=== PATIENT | female | born 1940 | race Caucasian/White ===

== ENCOUNTER → 2023-07-28 13:29 | Outpatient (REF) | payer OTHER, SELFPAY | LOC: HWRAD 13:29 | PROVIDERS: ATTENDING PHYSICIAN Internal Medicine Geriatric Medicine | DX: E78.2 Mixed hyperlipidemia (principal); I48.0 Paroxysmal atrial fibrillation; K21.9 Gastro-esophageal reflux disease without esophagitis; K22.70 Barrett's esophagus without dysplasia; D72.810 Lymphocytopenia; G62.9 Polyneuropathy, unspecified; H25.813 Combined forms of age-related cataract, bilateral; H35.363 Drusen (degenerative) of macula, bilateral; I10 Essential (primary) hypertension; Z13.31 Encounter for screening for depression; I49.3 Ventricular premature depolarization; M89.49 Other hypertrophic osteoarthropathy, multiple sites; N60.19 Diffuse cystic mastopathy of unspecified breast; E04.1 Nontoxic single thyroid nodule | CPT/HCPCS: 76536 ==

== ENCOUNTER → 2023-08-18 13:00 | Outpatient (REF) | payer OTHER, SELFPAY ==
[2023-08-18 13:55] VITALS: BP 152/80; BP_SYST 70
== END ==
LOC: RADI 13:00
PROVIDERS: ATTENDING PHYSICIAN Internal Medicine Geriatric Medicine
DX: E04.1 Nontoxic single thyroid nodule (principal)
CPT/HCPCS: 88173; 10005

== ENCOUNTER 2023-09-01 08:40 | Emergency (ER) | payer OTHER, SELFPAY ==
[2023-09-01 08:42] VITALS: BP 148/80
--- NOTE | 2023-09-01 09:28 | ED.GENMED ---
History of Present Illness
<Xuan James PA-C - Last Filed: 09/01/23 18:29>
General
Chief Complaint: Chest Pain
Source: patient
Exam Limitations: none
Time Seen by Provider: 09/01/23 09:01
Nursing documentation reviewed up to this point in time: agreed with
Travel History
Have you had any contact with someone who has COVID-19?: No
Do you have any symptoms of coronavirus? Fever > 100 degrees, chills, cough, shortness of breath, sore throat, loss of taste or smell, muscle aches, or headache?: No
History of Present Illness
History of Present Illness:
Patient is a 83 year old female with hx SVT, paroxysmal atrial fibrillation on eliquis presenting for evaluation of intermittent chest pain. Patient states symptoms been ongoing over the past year but she became more aware of the chest pain over
the past few days. She reports it is a sharp pain in her left chest without any radiation to her back or left arm. There is absolutely no exertional or pleuritic component to pain. Patient denies any associated shortness of breath, dizziness,
diaphoresis, nausea, vomiting. She did take Tylenol yesterday when she noticed the pain which did improve symptoms. Patient states that symptoms generally last about 5 minutes at a time
Patient follows with Dr. Bermudez as her primary switchboard receptionist. She did speak with his office yesterday and they are planning to set her up for stress echocardiogram. They recommended that if pain persist and or worsen she should come to the
emergency department for evaluation.
Patient denies any recent surgery or recent travel. Patient has no personal or family history of clotting disorders. Patient is compliant with Eliquis.
Past History
<Xuan James PA-C - Last Filed: 09/01/23 18:29>
Past History
ED Past Medical History: Arrthythmia (SVT), GERD, HTN and Other
ED Past Surgical History: Gynecological (Hysterectomy ) and Other (Hernia repair )
Social History
Tobacco: Non-smoker
Alcohol: Occasional
Personal: Single
Living: alone
Employment: Retired
Family History
Family History: Other (Father with AK at 61. Mother with AK at 88)
Review of Systems
<Xuan James PA-C - Last Filed: 09/01/23 18:29>
Review of Systems
Allergies reviewed?: Yes
All Other Systems: ROS reviewed and negative except as documented in HPI and ROS
Phy Exam
<Xuan James PA-C - Last Filed: 09/01/23 18:29>
Physical Exam
Physical Exam:
Vitals: Patient's vital signs are stable. Afebrile
General: Patient is well appearing, no acute distress
Skin: Warm and dry, no rashes or lesions
Head: Normocephalic, atraumatic
Eyes: Sclera nonicteric. EOMs intact. No nystagmus.
Throat: Protecting airway
Neck: Normal ROM, no cervical spine tenderness, no meningismus. Trachea midline
Cardiac: Regular rate and rhythm, no murmurs. Point tenderness of left anterior chest wall without any crepitus or deformity. No bruising.
Pulm: Normal respiratory effort, no wheezes, rales, rhonchi heard on exam.
Abdomen: No abdominal tenderness.
Extremities: 1+ pitting edema bilaterally. No tenderness or warmth of bilateral lower extremities. Good distal pulses
Neuro: AAOx3. CN II-XII intact. No focal neurologic deficits.
Psychiatric: Normal affect.
Scores
<Xuan James PA-C - Last Filed: 09/01/23 18:29>
Heart Score for Chest Pain Patients
STEMI patient?: No
History: Slightly or Non-Suspicious
ECG: Normal
Age: >/= 65 years
Risk Factors: 1 or 2 Risk Factors
Troponin: </= Normal Limit
Heart Score for Chest Pain Patients: 3
Heart Score Risk: 2.5% MACE over next 6 weeks
Course
<Xuan James PA-C - Last Filed: 09/01/23 18:29>
Orders/Labs/Results
Orders:
Orders
09/01/23 08:44
ECG [Electrocardiogram (*1)] Urgent
Reason for Study: Chest Pain
EKG- Treatment ONCE
09/01/23 09:30
CR Chest - 2 Views Urgent
Comment:
Reason For Exam: left sided chest pain
09/01/23 09:41
Complete Blood Count/With Diff Urgent
Troponin I Urgent
09/01/23 10:19
Comprehensive Metabolic Panel Urgent
Abnormal Lab Results
09/01/23 09/01/23
09:41 10:19
MCH 31.7 H pg
(27.0-31.0)
Lymphocytes % 19.7 L %
(20.5-51.1)
BUN 19 H mg/dl
(7-17)
Glucose 100 H mg/dl
(70-99)
09/01/23 09:41
09/01/23 10:19
Vital Signs
Initial and Last Documented VS:
Initial Vital Signs
Temp Pulse Resp BP Pulse Ox
98.1 F 75 18 148/80 98
09/01/23 08:42 09/01/23 08:42 09/01/23 08:42 09/01/23 08:42 09/01/23 08:42
Last Documented Vital Signs
Temp Pulse Resp BP Pulse Ox
98.1 F 65 22 139/75 98
09/01/23 08:42 09/01/23 11:15 09/01/23 11:15 09/01/23 09:54 09/01/23 09:54
<Mario Mckeon DO - Last Filed: 09/01/23 09:43>
Orders/Labs/Results
Orders:
Orders
09/01/23 08:44
ECG [Electrocardiogram (*1)] Urgent
Reason for Study: Chest Pain
EKG- Treatment ONCE
09/01/23 09:30
CR Chest - 2 Views Urgent
Comment:
Reason For Exam: left sided chest pain
09/01/23 09:41
Complete Blood Count/With Diff Urgent
Troponin I Urgent
09/01/23 10:19
Comprehensive Metabolic Panel Urgent
Abnormal Lab Results
09/01/23 09/01/23
09:41 10:19
MCH 31.7 H pg
(27.0-31.0)
Lymphocytes % 19.7 L %
(20.5-51.1)
BUN 19 H mg/dl
(7-17)
Glucose 100 H mg/dl
(70-99)
09/01/23 09:41
09/01/23 10:19
Vital Signs
Initial and Last Documented VS:
Initial Vital Signs
Temp Pulse Resp BP Pulse Ox
98.1 F 75 18 148/80 98
09/01/23 08:42 09/01/23 08:42 09/01/23 08:42 09/01/23 08:42 09/01/23 08:42
Last Documented Vital Signs
Temp Pulse Resp BP Pulse Ox
98.1 F 65 22 139/75 98
09/01/23 08:42 09/01/23 11:15 09/01/23 11:15 09/01/23 09:54 09/01/23 09:54
<Xuan James PA-C - Last Filed: 09/01/23 18:29>
MDM/Problems Addressed
Differential Diagnosis Includes:
Not limited to: Muscular strain, costochondritis, pleurisy, pericarditis, myocarditis, pneumonia, pneumothorax, doubt ACS or pulmonary emboli
MDM/Problems Addressed:
83-year-old female presenting with intermittent left-sided chest pain over the past year with some worsening noted over the past few days. Absolutely no exertional or pleuritic component to pain. No known exacerbating or alleviating factors. No
inciting injury. There is no associated shortness of breath. Patient is asymptomatic at this time. Vitals stable. Exam as above. She does have point tenderness to left lateral anterior chest wall without any crepitus or overlying rash. Heart
regular rate and rhythm. Lungs clear bilaterally. Bilateral 1+ pitting edema of lower extremities which is chronic per patient. No clinical suspicion for DVT. Will check basic labs, troponin, chest x-ray. EKG obtained in triage shows normal
sinus rhythm without any signs of ischemia. Considering reproducible nature of pain�suspect likely musculoskeletal in origin.
Labs reviewed. No clinically significant abnormalities. Troponin negative. Given symptoms have been ongoing for a few days�this is sufficient to rule out acute AK. Chest x-ray shows no acute process. No evidence of pneumonia, pneumothorax. Did
review case with Dr. Burnett with cardiology who agrees with outpatient follow-up for stress echocardiogram. Patient will call switchboard receptionist today to schedule appointment. Patient remains stable and asymptomatic throughout the emergency department.
Otherwise stable for discharge with close return precautions, Tylenol for pain. All questions answered.
Chronic conditions affecting care:
Paroxysmal atrial fibrillation on Eliquis
Acute Exacerbation and/or Progression of Chronic Illness:
N/A
<Xuan James PA-C - Last Filed: 09/01/23 18:29>
*Radiology
Radiology exam reviewed: preliminary read by ED provider and radiology read reviewed
*Pulse Oximetry
Patient hypoxic: no
*EKG
Interpreted by ED Provider?: Yes
EKG Intrepretation Date: 09/01/23
Interpretation: normal
Heart Rate: 68
Rate: normal
Rhythm: sinus
Ischemia: no ischemia
*Senior Talent Acquisition Specialist Interpretation
Rate: normal
Interpretation: normal
Heart Rate: 72
Rhythm: sinus
*Critical Care Note
Total Time (30-74mins, 75-104mins- exclusive of procedures): Not Applicable
Data Reviewed
Review of Other/Old Records Reveals: Labs and Records
<Xuan James PA-C - Last Filed: 09/01/23 18:29>
Patient Management
Discussion with other providers: [employer] (Cardiology - Dr. Burnett)
ED Attending Note
<Xuan James PA-C - Last Filed: 09/01/23 18:29>
-
Portions of this chart may have been created with voice recognition software.� Occasional wrong word or��sound alike� substitutions may have occurred due to the inherent limitations of voice recognition software.
<Mario Mckeon DO - Last Filed: 09/01/23 09:43>
ED Attending Note
Patient seen and examined by attending physician: Yes
I performed the substantive portion of visit, reviewed & personally made and approve the management plan that is documented in note by myself or PINA.: Yes
Discharge Plan
Departure
Patient Disposition: Home (Routine Discharge)
Date of Disposition: 09/01/23
Time of Disposition: 11:15
Patient with high blood pressure during this ER visit?: No
Condition: Good
Covid-19: Not Applicable
Discharge Problem:
Chest pain
Instructions: Chest Pain, Adult ED
Prescriptions:
No Action
diltiazem HCl 120 MG capsule,extended release 12 hr
120 mg PO DAILY
omeprazole [Prilosec] 40 MG capsule,delayed release(DR/EC)
20 mg PO DAILY
Centrum Complete 1 EACH tablet
1 ea PO DAILY
Calcium
1,200 mg PO DAILY
cholecalciferol (vitamin D3) [Vitamin D3] 400 UNITS tablet
400 units PO DAILY
diltiazem HCl 240 MG capsule,extended release 24hr
240 mg PO DAILY Qty: 30 0RF
meclizine [Motion Sickness Relief(mecliz)] 25 MG tablet
25 mg PO Q8HPRN PRN (Reason: vertigo) Qty: 12 0RF
Eliquis 5 mg Tablet
5 mg PO BID
Referrals:
Jeremy Martinez DO [Active] - Follow up in 5-7 days
Solitario Davis MD [Family Provider] -
Activity Restrictions/Additional Instructions:
RETURN TO THE EMERGENCY DEPARTMENT WITH ANY WORSENING CHEST PAIN OR SHORTNESS OF BREATH, CHEST PAIN ASSOCIATED WORSE WITH EXERTION OR ASSOCIATED WITH NAUSEA, BACK PAIN, SWEATING, DIZZINESS, WORSENING IN CURRENT SYMPTOMS, OR ANY OTHER CONCERNS
-You can continue to take Tylenol as needed for discomfort. Stay well-hydrated.
-As discussed�you should follow-up with your switchboard receptionist for outpatient stress echo. Do not hesitate to return to the emergency department with any worsening in symptoms.
Interventions
Interventions:
*Risk Screen - Suicide Last Done: 09/01/23 09:34
*General Assessment Last Done: 09/01/23 09:34
*Neglect/Abuse Screening Last Done: 09/01/23 09:34
ED- Fall Risk Assessment Last Done: 09/01/23 11:26
*ED COVID-19 Vaccine History Last Done: 09/01/23 08:42
*Nursing Disposition Last Done: 09/01/23 11:26
ED- Cardiac Assessment Last Done: 09/01/23 09:34
Discharge Date and Time
Discharge Date/Time: 09/01/23 11:27
Print Language: CENTRAL AFRICAN
[2023-09-01 09:34] VITALS: BMI 27.2
[2023-09-01 09:47] LABS: % Basophils 1.2 % (0-2); % Eosinophils 1.5 % (0-6); % Immature Granulocytes 0.3 % (0-0.5); % Lymphocytes 19.7 % (20.5-51.1); % Monocytes 6.3 % (1.7-9.3); Absolute Basophils 0.1 10^3/uL (0-0.2); Absolute Eosinophils 0.1 10^3/uL (0-0.7); Absolute Lymphocytes 1.2 10^3/uL (1.2-3.4); Absolute Monocytes 0.4 10^3/uL (0.1-0.6); Absolute Neutrophils 4.3 10^3/uL (1.4-6.5); Hematocrit 43.4 % (37.0-47.0); Hemoglobin 15.1 g/dL (12.0-16.0); Mean Corp Hgb Conc. 34.8 g/dL (33.0-37.0); Mean Corpuscular Hgb 31.7 pg (27.0-31.0); Mean Platelet Volume 9.8 fL (7.4-10.4); Nucleated Red Blood Cells % 0 %; Platelet Count 205 10^3/uL (130-400); Red Blood Cell Count 4.77 10^6/uL (4.20-5.40); Red Cell Dist. Width 12.4 % (11.5-14.5)
[2023-09-01 09:54] VITALS: BP 139/75
[2023-09-01 10:16] LABS: Troponin I < 0.012 ng/ml
[2023-09-01 10:46] LABS: ALT (SGPT) 24 U/L (0-35); AST (SGOT) 28 U/L (14-36); Albumin 4.3 g/dl (3.5-5.0); Alkaline Phosphatase 89 U/L (38-126); Blood Urea Nitrogen 19 mg/dl (7-17); Calcium 9.9 mg/dl (8.4-10.2); Carbon Dioxide 29 mmol/L (22-30); Chloride 105 mmol/L (98-107); Estimated Creatinine Clearance 59 ml/min; Glucose 100 mg/dl (70-99); Sodium 142 mmol/L (135-145); Total Bilirubin 0.7 mg/dl (0.2-1.3); Total Protein 6.9 g/dl (6.3-8.2); eGFR > 60.00
== END 2023-09-01 11:27 | disposition home or self-care (01) ==
LOC: EMR 08:40
PROVIDERS: Physician Assistant; EMERGENCY PHYSICIAN Emergency Medicine; FAMILY PHYSICIAN Internal Medicine Geriatric Medicine
DX: R07.89 Other chest pain (principal); R60.0 Localized edema; I48.0 Paroxysmal atrial fibrillation; I47.10 Supraventricular tachycardia, unspecified; I10 Essential (primary) hypertension; K21.9 Gastro-esophageal reflux disease without esophagitis; Z79.01 Long term (current) use of anticoagulants; Z88.1 Allergy status to other antibiotic agents; Z88.0 Allergy status to penicillin; Z88.8 Allergy status to other drugs, medicaments and biological substances; Z91.048 Other nonmedicinal substance allergy status
CPT/HCPCS: 99283; 71046; 80053; 84484; 85025; 93005

== ENCOUNTER → 2023-09-23 14:01 | Outpatient (REF) | payer OTHER, SELFPAY | LOC: HWWDC 14:01 | PROVIDERS: ATTENDING PHYSICIAN Surgery; FAMILY PHYSICIAN Internal Medicine Geriatric Medicine | DX: Z12.31 Encounter for screening mammogram for malignant neoplasm of breast (principal) | CPT/HCPCS: 77063; 77067 ==

== ENCOUNTER → 2023-09-29 13:15 | Outpatient (REF) | payer OTHER, SELFPAY | LOC: RCS 13:15 | PROVIDERS: ATTENDING PHYSICIAN Nuclear Medicine Nuclear Cardiology; FAMILY PHYSICIAN Internal Medicine Geriatric Medicine | DX: R07.89 Other chest pain (principal) | CPT/HCPCS: 93017; 93350 ==

== ENCOUNTER → 2024-02-11 12:26 | Outpatient (REF) | payer OTHER, SELFPAY | LOC: HWRAD 12:26 | PROVIDERS: ATTENDING PHYSICIAN Internal Medicine Geriatric Medicine | DX: E78.2 Mixed hyperlipidemia (principal); K21.9 Gastro-esophageal reflux disease without esophagitis; K22.70 Barrett's esophagus without dysplasia; M81.0 Age-related osteoporosis without current pathological fracture; I10 Essential (primary) hypertension; I49.3 Ventricular premature depolarization; E04.1 Nontoxic single thyroid nodule | CPT/HCPCS: 76536 ==

== ENCOUNTER → 2024-04-13 14:37 | Outpatient (REF) | payer OTHER, SELFPAY | LOC: HWRAD 14:37 | PROVIDERS: ATTENDING PHYSICIAN Internal Medicine Rheumatology; FAMILY PHYSICIAN Internal Medicine Geriatric Medicine | DX: M81.0 Age-related osteoporosis without current pathological fracture (principal) | CPT/HCPCS: 77080; 77081 ==

== ENCOUNTER → 2024-08-02 13:38 | Outpatient (REF) | payer OTHER, SELFPAY | LOC: HWRCS 13:38 | PROVIDERS: ATTENDING PHYSICIAN Nuclear Medicine Nuclear Cardiology; FAMILY PHYSICIAN Internal Medicine Geriatric Medicine | DX: R06.9 Unspecified abnormalities of breathing (principal); I08.0 Rheumatic disorders of both mitral and aortic valves | CPT/HCPCS: 93306 ==

== ENCOUNTER → 2024-10-10 14:09 | Outpatient (REF) | payer OTHER, SELFPAY | LOC: HWWDC 14:09 | PROVIDERS: ATTENDING PHYSICIAN Surgery; FAMILY PHYSICIAN Internal Medicine Geriatric Medicine; REFERRING PHYSICIAN Obstetrics & Gynecology | DX: Z12.31 Encounter for screening mammogram for malignant neoplasm of breast (principal) | CPT/HCPCS: 77063; 77067 ==

== ENCOUNTER 2024-10-31 06:14 | Day surgery (SDC) | payer OTHER, SELFPAY ==
[2024-10-31 12:47] VITALS: BMI 23.2
[2024-10-31 12:48] VITALS: BMI 23.2
[2024-10-31 12:49] VITALS: BP 163/91
[2024-10-31 17:05] VITALS: BP 125/53
[2024-10-31 17:15] VITALS: BP 135/71
[2024-10-31 17:30] VITALS: BP 127/71
== END 2024-10-31 18:06 | disposition home or self-care (01) ==
LOC: SDS 06:14
PROVIDERS: ATTENDING PHYSICIAN Internal Medicine Gastroenterology
DX: D12.2 Benign neoplasm of ascending colon (principal); K57.30 Diverticulosis of large intestine without perforation or abscess without bleeding; K64.0 First degree hemorrhoids; R19.5 Other fecal abnormalities; K22.89 Other specified disease of esophagus; K31.7 Polyp of stomach and duodenum; Z79.01 Long term (current) use of anticoagulants
CPT/HCPCS: 45385; 43239; 88305

== ENCOUNTER → 2024-11-21 14:42 | Outpatient (REF) | payer OTHER, SELFPAY | LOC: HWRAD 14:42 | PROVIDERS: ATTENDING PHYSICIAN Internal Medicine Geriatric Medicine; REFERRING PHYSICIAN Surgery | DX: E04.1 Nontoxic single thyroid nodule (principal) | CPT/HCPCS: 76536 ==

== ENCOUNTER 2025-01-23 06:19 | Day surgery (SDC) | payer OTHER, SELFPAY ==
[2025-01-16 14:00] VITALS: BMI 25.5
[2025-01-16 14:28] LABS: Hematocrit 40.0 % (37.0-47.0); Hemoglobin 14.0 g/dL (12.0-16.0); Mean Corp Hgb Conc. 35.0 g/dL (33.0-37.0); Mean Corpuscular Volume 92.2 fL (81.0-99.0); Platelet Count 195 10^3/uL (130-400); Red Cell Dist. Width 12.2 % (11.5-14.5)
[2025-01-16 14:42] LABS: INR 1.10; PT 14.5 Sec (11.4-14.6)
[2025-01-16 14:43] LABS: APTT 33.8 Sec (23.4-35.0)
[2025-01-16 15:04] LABS: ALT (SGPT) 24 U/L (0-35); AST (SGOT) 26 U/L (14-36); Albumin 4.3 g/dl (3.5-5.0); Alkaline Phosphatase 76 U/L (38-126); Blood Urea Nitrogen 13 mg/dl (7-17); Calcium 9.6 mg/dl (8.4-10.2); Carbon Dioxide 28 mmol/L (22-30); Chloride 105 mmol/L (98-107); Estimated Creatinine Clearance 58 ml/min; Glucose 90 mg/dl (70-99); Potassium 4.1 mmol/L (3.5-5.1); Sodium 138 mmol/L (135-145); Total Protein 6.8 g/dl (6.3-8.2); eGFR > 60.00
[2025-01-23] VITALS (14 sets, daily range): BP systolic 114–162; BP diastolic 60–78; BMI 25.5
[2025-01-23] MEDS: HEPARIN SC (09:16)
[2025-01-23] MEDS: EMEND 40 MG PO (09:16)
[2025-01-23] MEDS: NEURONTIN 300 MG PO (09:16)
[2025-01-23] MEDS: NORMOSOL-R/PLASMALYTE-A 1000 IV (09:19)
[2025-01-23] MEDS: TYLENOL 1000 MG PO (09:25)
[2025-01-23] MEDS: HEPARIN 5000 UNITS SC (09:28)
--- NOTE | 2025-01-23 12:16 | OR.RPT ---
Operative Report
Operative Report
DATE OF OPERATION: January 23, 2025
PREOPERATIVE DIAGNOSIS: Right Thyroid Nodule - E041
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
SURGEON: Anil Cuello M.D.
OPERATION: Right Thyroidectomy and Limited Neck Dissection � 37680
Right Inferior Parathyroidectomy - 70436
ANESTHESIA: GET
ESTIMATED BLOOD LOSS: 5 cc
DRAINS: None
SPECIMEN: Right thyroid lobe & isthmus, level paratracheal tissue & right inferior parathyroid adenoma, and right mediastinal tumor
FINDINGS: Right thyroid nodule and right inferior parathyroid adenoma
COMPLICATIONS: None
PROCEDURE:
The patient was taken to the operating room and placed in the usual supine position. After adequate general endotracheal anesthesia was established, the patient�s neck was extended, prepped, and draped in the typical sterile fashion. A 4 cm
transcervical incision was made two fingerbreadths above the sternal notch. The skin incision was made with the #15 blade, which was taken through the skin into the subcutaneous tissue. The underlying platysma muscle was divided, and subplatysmal
flaps were created superiorly to the thyroid cartilage and inferiorly to the sternal notch. Strap muscles were identified and at the midline.
Attention was turned to the patient�s right thyroid lobe. The right thyroid lobe was mobilized medially. During this process, the right middle thyroid vein and inferior thyroid artery were dissected and ligated with Ligasure. There was a substernal
extension, which was delivered out of the mediastinum through the cervical incision. Next, the right superior pole was taken down by dissecting and transecting the superior pole vessels with a Ligasure. The right thyroid lobe was mobilized medially.
During this process, the right recurrent laryngeal nerve was identified and preserved throughout its entire course. The right superior and inferior parathyroid glands were identified. The right inferior parathyroid gland was significantly enlarged;
thus, it was resected and sent to the pathology department. The right thyroid lobe with isthmus was resected from the trachea and sent to the pathology department.
At this time, the right level neck dissection was performed. The tissue between the right carotid artery to the trachea into the anterior mediastinum was carefully dissected. The previously identified recurrent laryngeal nerve and parathyroid
glands were preserved. The tissue was removed and sent to the pathology department.
After achieving adequate hemostasis, the strap muscle was approximated with #3-0 Vicryl in a running fashion, and the platysma muscles were reapproximated with #3-0 Vicryl in an interrupted manner. The skin was then closed with #4-0 Monocryl in a
running subcuticular technique. Steri-strips and sterile dressings were applied. The patient tolerated the procedure well. The final instrument, needle, and sponge counts were correct.
--- NOTE | 2025-01-23 13:42 | PTCARENOTE ---
Pt arrived to 2S in bed. Full assessment completed. Anterior neck DSG C/D/I. No crepitus noted. Nasal cannula maintained. Bed locked and in the lowest position, safety maintained. Oriented to room and call izaguirre.
[2025-01-23] MEDS: PROTONIX 40 MG PO (14:34)
[2025-01-23] MEDS: TYLENOL 650 MG PO ×2 (17:32→20:40)
[2025-01-23] MEDS: VITAMIN D3 (cholecalciferol) 10 MCG PO (17:32)
[2025-01-23] MEDS: CARDIZEM CD 240 MG PO (21:33)
--- NOTE | 2025-01-24 02:24 | DOWNTIME ---
There was a [employer] Client Casino Attendant Downtime on 01/24/2025 from 0100 to 01/24/2025 at 0215. Downtime documentation of patient's care, including medication administrations, has been reconciled in the electronic record per guidelines. Refer to the
patient's paper chart under the miscellaneous tab to see printed paper medication records and downtime forms.
[2025-01-24] MEDS: TYLENOL PO ×2 (02:26→04:27)
[2025-01-24 03:00] VITALS: BP 118/64
[2025-01-24 07:33] VITALS: BP 118/68
[2025-01-24] MEDS: TYLENOL 650 MG PO ×2 (09:02→12:28)
[2025-01-24] MEDS: OSCAL 500 + D 1000 MG PO (09:03)
--- NOTE | 2025-01-24 09:03 | W.DS.TRANS ---
DC Summary - Certified Addiction Counselor
-
Discharge Instructions:
Sleep Apnea Risk Intermediate
Diet No restrictions
Activity No restrictions,No strenuous activity
Driving Restrictions no driving for 48 hrs
Bathing Restrictions OK to Shower
Instructions:
Stand-Alone Forms:
Changes to Home Medications: No
Discharge Medications:
DC Medications w/original date entered in [facility]
multivitamin-ferrous fumarate-folic acid 18 mg-400 mcg tablet (Centrum Complete) 1 ea PO DAILY 07/01/09
omeprazole 40 mg capsule,delayed release (Prilosec) 20 mg PO DAILY 07/01/09
cholecalciferol (vitamin D3) 10 mcg (400 unit) tablet (Vitamin D3) 400 units PO Q48H 08/28/18
apixaban 5 mg tablet (Eliquis) 5 mg PO BID 08/18/23
acetaminophen 325 mg tablet (Tylenol) 325 mg PO ONCE PRN pain 10/31/24
carboxymethylcellulose sodium 0.25 % eye drops (TheraTears) 2 drp ophthalmic (eye) BID PRN dry eyes 10/31/24
calcium citrate 200 mg PO DAILY 01/17/25
diltiazem HCl 240 mg capsule,extended release 24 hr 240 mg PO HS 01/17/25
loratadine 10 mg tablet (Claritin) 10 mg PO DAILY PRN congestion 01/17/25
sodium chloride 0.65 % nasal spray aerosol (Saline Mist) 2 spray intranasal Q4H PRN congestion 01/17/25
Home Medication Changes
Pending Results: No
[2025-01-24] MEDS: PROTONIX 40 MG PO (09:04)
[2025-01-24] MEDS: THERAGRAN 1 TABLET PO (09:04)
--- NOTE | 2025-01-24 10:03 | CM ---
Cm reviewed medical records. Patient denied history of VN, SNF or DME. Patient's significant other will provide a ride and transportation.
PLAN: Home no needs.
[2025-01-24 11:14] VITALS: BP 133/70
== END 2025-01-24 14:06 | disposition home or self-care (01) ==
LOC: SDS 06:19
PROVIDERS: ATTENDING PHYSICIAN Surgery; FAMILY PHYSICIAN Internal Medicine Geriatric Medicine
DX: E04.2 Nontoxic multinodular goiter (principal)
CPT/HCPCS: 60500; 36415; 80053; 85027; 85610; 85730; 88305; 88307